=== PATIENT | female | born 2000 | race Caucasian/White ===

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

== ENCOUNTER 2020-08-18 19:15 | Outpatient (REF) | payer BC, SELFPAY ==
[2020-08-18 22:05] LABS: Abs Immature Grans 0.02 10^3/uL (0.0-0.06); Absolute Basophil Count 0.03 10^3/uL (0.0-0.2); Absolute Lymphocyte Count 2.77 10^3/uL (1.2-3.4); Absolute Monocyte Count 0.61 10^3/uL (0.1-0.8); Basophils % 0.3; Eosinophils % 0.9; HCT 42.8 % (36.0-46.0); HGB 13.5 g/dL (11.2-15.7); Immature Grans % 0.2; Lymphocytes % 23.9; MCH 26.4 pg (27.0-33.0); MCHC 31.5 % (32.0-36.0); MCV 83.8 fL (80-95); MPV 10.8 fL (8.0-11.0); Monocytes % 5.3; Neutrophils % 69.4; Nucleated RBC 0 %; Platelet Count 385 10^3/uL (130-400); RBC 5.11 10^6/uL (3.93-5.22); RDW 13.5 % (11.7-14.6); RDW-SD 41.7 fL; WBC 11.59 10^3/uL (4.4-10.8)
[2020-08-18 22:19] LABS: Absolute Neutrophil Count 8.04 10^3/uL (1.2-6.7)
[2020-08-18 22:37] LABS: ALT 33 U/L (14-59); AST 18 U/L (15-37); Albumin 3.7 g/dL (3.4-5.0); Alkaline Phosphatase 67 U/L (46-116); Anion Gap 7.7 mmol/L (3-11); BUN 13 mg/dL (7-18); Bilirubin, Total 0.3 mg/dL (0.2-1.0); CO2 28.3 mmol/L (21.0-32.0); Calcium 8.9 mg/dL (8.5-10.1); Chloride 105 mmol/L (98-107); Glucose 81 mg/dL (74-106); Sodium 141 mmol/L (136-145); TSH (W/Ref FT4) 1.44 uIU/mL (0.36-3.74); Total Protein 7.6 g/dL (6.4-8.2)
[2020-08-18 22:39] LABS: HCG Quant, Pregnancy < 1 mIU/mL (1-3)
[2020-08-18 23:32] LABS: Hemoglobin A1C 5.2 % (<5.7)
== END 2020-08-18 19:35 ==
LOC: NCHCN 19:15
PROVIDERS: PCP Nurse Practitioner Family; Visit Provider Nurse Practitioner Community Health
DX: R11.10 Vomiting, unspecified (principal); R68.89 Other general symptoms and signs; R63.2 Polyphagia; R63.1 Polydipsia; R12 Heartburn; Z13.29 Encounter for screening for other suspected endocrine disorder
CPT/HCPCS: 80053; 83036; 84443; 84702; 85025

== ENCOUNTER 2020-09-08 18:55 | Outpatient (REF) | payer BC, SELFPAY ==
[2020-09-08 22:02] LABS: Abs Immature Grans 0.04 10^3/uL (0.0-0.06); Absolute Basophil Count 0.04 10^3/uL (0.0-0.2); Absolute Eosinophil Count 0.14 10^3/uL (0.0-0.7); Absolute Monocyte Count 0.69 10^3/uL (0.1-0.8); Absolute Neutrophil Count 9.04 10^3/uL (1.2-6.7); Basophils % 0.3; Eosinophils % 1.1; HCT 40.1 % (36.0-46.0); HGB 12.9 g/dL (11.2-15.7); Immature Grans % 0.3; MCH 26.4 pg (27.0-33.0); MCHC 32.2 % (32.0-36.0); MCV 82.2 fL (80-95); MPV 10.7 fL (8.0-11.0); Monocytes % 5.4; Neutrophils % 70.9; Nucleated RBC 0 %; Platelet Count 354 10^3/uL (130-400); RBC 4.88 10^6/uL (3.93-5.22); RDW 13.4 % (11.7-14.6); RDW-SD 40.2 fL; WBC 12.75 10^3/uL (4.4-10.8)
[2020-09-08 22:03] LABS: Absolute Lymphocyte Count 2.81 10^3/uL (1.2-3.4)
== END 2020-09-08 19:15 ==
LOC: NCHCN 18:55
PROVIDERS: PCP Nurse Practitioner Family; Visit Provider Nurse Practitioner Community Health
DX: D72.829 Elevated white blood cell count, unspecified (principal)
CPT/HCPCS: 85025

== ENCOUNTER 2020-09-29 19:04 | Outpatient (REF) | payer BC, SELFPAY ==
[2020-09-29 21:43] LABS: Abs Immature Grans 0.03 10^3/uL (0.0-0.06); Absolute Basophil Count 0.04 10^3/uL (0.0-0.2); Absolute Monocyte Count 0.65 10^3/uL (0.1-0.8); Absolute Neutrophil Count 10.05 10^3/uL (1.2-6.7); Basophils % 0.3; Eosinophils % 0.9; HCT 41.5 % (36.0-46.0); HGB 13.5 g/dL (11.2-15.7); Immature Grans % 0.2; MCH 26.8 pg (27.0-33.0); MCHC 32.5 % (32.0-36.0); MCV 82.5 fL (80-95); MPV 10.6 fL (8.0-11.0); Monocytes % 4.7; Neutrophils % 72.9; Nucleated RBC 0 %; Platelet Count 364 10^3/uL (130-400); RBC 5.03 10^6/uL (3.93-5.22); RDW 13.5 % (11.7-14.6); RDW-SD 40.6 fL; WBC 13.79 10^3/uL (4.4-10.8)
[2020-09-29 21:56] LABS: Absolute Eosinophil Count 0.12 10^3/uL (0.0-0.7)
== END 2020-09-29 19:05 | disposition home or self-care (01) ==
LOC: NCHCN 19:04
PROVIDERS: PCP Family Medicine; Visit Provider Family Medicine
DX: K21.9 Gastro-esophageal reflux disease without esophagitis (principal); Z87.19 Personal history of other diseases of the digestive system
CPT/HCPCS: 85025

== ENCOUNTER 2023-10-09 14:52 | Outpatient (REF) | payer BC, SELFPAY ==
[2023-10-10 11:26] LABS: EBNA IgG Negative (Negative); EBV Interpretation (See Note); VCA IgG Negative (Negative); VCA IgM Negative (Negative)
== END 2023-10-09 14:53 | disposition home or self-care (01) ==
LOC: NCHCN 14:52
PROVIDERS: PCP Family Medicine; Visit Provider Physician Assistant
DX: J03.90 Acute tonsillitis, unspecified (principal)
CPT/HCPCS: 87077; 86664; 86665; 87070

== ENCOUNTER 2023-11-07 21:11 | Outpatient (REF) | payer BC, SELFPAY | END 2023-11-07 21:12 | disposition home or self-care (01) | LOC: NCHCN 21:11 | PROVIDERS: PCP Family Medicine; Visit Provider Physician Assistant | DX: J03.90 Acute tonsillitis, unspecified (principal) | CPT/HCPCS: 87070 ==

== ENCOUNTER 2024-02-13 15:50 | Outpatient (REF) | payer SELFPAY ==
[2024-02-13 22:31] LABS: ALT 31 U/L (14-59); AST 23 U/L (15-37); Albumin 3.7 g/dL (3.4-5.0); Alkaline Phosphatase 71 U/L (46-116); Bilirubin, Direct 0.1 mg/dL (0.0-0.2); Bilirubin, Total 0.22 mg/dL (0.2-1.0); TSH (W/Ref FT4) 2.12 uIU/mL (0.36-3.74); Total Protein 8.1 g/dL (6.4-8.2)
== END 2024-02-13 15:51 | disposition home or self-care (01) ==
LOC: NCHCN 15:50
PROVIDERS: PCP Family Medicine; Visit Provider Physician Assistant
DX: R68.89 Other general symptoms and signs (principal); E66.01 Morbid (severe) obesity due to excess calories; Z68.41 Body mass index [BMI] 40.0-44.9, adult
CPT/HCPCS: 80076; 84443

== ENCOUNTER 2024-04-03 17:09 | Outpatient (REF) | payer SELFPAY | END 2024-04-03 17:10 | disposition home or self-care (01) | LOC: NCHCN 17:09 | PROVIDERS: PCP Family Medicine; Visit Provider Family Medicine | DX: J02.9 Acute pharyngitis, unspecified (principal) | CPT/HCPCS: 87070 ==

== ENCOUNTER 2025-06-23 17:22 | Outpatient (REF) | payer BC, SELFPAY ==
[2025-06-23 21:43] LABS: Cholesterol 160 mg/dL (<200); HDL Cholesterol 56 mg/dL (>40)
[2025-06-24 19:06] LABS: HIV-1/2 Ag & Ab Screen Negative (Negative)
[2025-06-24 19:07] LABS: Hepatitis C Ab w Rflx HCV PCR Negative (Negative)
[2025-06-25 10:33] LABS: Syphilis Serology (RPR) Negative (Negative)
[2025-06-25 12:10] LABS: Chlamydia Result Negative (Negative); GC Result Negative (Negative)
== END 2025-06-23 17:23 | disposition home or self-care (01) ==
LOC: NCHCN 17:22
PROVIDERS: PCP Family Medicine; Visit Provider Family Medicine
DX: Z20.2 Contact with and (suspected) exposure to infections with a predominantly sexual mode of transmission (principal)
CPT/HCPCS: 80061; 86803; 87389; 87491; 87591; 86592